=== PATIENT | male | born 1950 | race Two or more races ===

== ENCOUNTER 2017-02-19 11:48 | Inpatient (IN) | payer OTHER ==
[~2017-02-19] VITALS: Ht 180.3 cm; Wt 81.6 kg
--- NOTE | 2017-02-19 11:48 | NUR ---
[id number] FROM HOME FOR PROGRESSING WEAKNESS, N/V. [id number]. PLACED ON MONITOR. AWAITING MD ORDER
[2017-02-19] MEDS ORDERED: IV NS 0.9% 500 ML BAG IV ONE (12:00)
[2017-02-19 12:26] LABS: BASOPHILS # (AUTO) 0.2 /CMM (0.0-0.2); BASOPHILS % (AUTO) 2.5 % (0.0-2.0); EOSINOPHILS % (AUTO) 0.4 % (0.0-6.0); HEMATOCRIT 44 % (39-51); HEMOGLOBIN 14.6 g/dL (13.5-17.5); LYMPHOCYTES % (AUTO) 10.8 % (20.0-44.0); MEAN CORPUSCULAR HEMOGLOBIN 31 PG (26.0-33.0); MEAN CORPUSCULAR HGB CONC 33 g/dl (31.0-36.0); MEAN CORPUSCULAR VOLUME 94 fL (80-96); MONOCYTES # (AUTO) 0.5 /CMM (0.1-1.30); NEUTROPHILS # (AUTO) 7.9 /CMM (1.8-8.9); NEUTROPHILS % (AUTO) 81.3 % (43.0-81.0); PLATELET COUNT (AUTO) 255 /CMM (150-450); RED BLOOD CELL COUNT(AUTO) 4.71 MIL/uL (4.5-6.0); WHITE BLOOD COUNT (AUTO) 9.6 K/uL (4.3-11.0)
[2017-02-19 12:35] LABS: CALCIUM, SERUM 9.4 mg/dL (8.5-10.1); CARBON DIOXIDE 26 mmol/L (21-32); CHLORIDE 107 mmol/L (98-107); CREATININE 1.3 mg/dL (0.6-1.3); GLUCOSE 217 mg/dL (74-106); POTASSIUM 3.7 mmol/L (3.5-5.1); SODIUM SERUM 144 mmol/L (136-145); UREA NITROGEN, BLOOD 16 mg/dL (7-18)
[2017-02-19 12:41] LABS: ALANINE AMINOTRANSFERASE 30 U/L (12-78); ALKALINE PHOSPHATASE 106 U/L (46-116); ASPARTATE AMINOTRANSFERASE 15 U/L (15-37); BILIRUBIN,DIRECT 0.3 mg/dL (0.0-0.2); BILIRUBIN,TOTAL 1.6 mg/dL (0.2-1.0); TOTAL PROTEIN, SERUM 7.6 g/dL (6.4-8.2)
[2017-02-19 12:43] LABS: TROPONIN I < 0.017 ng/mL (0.00-0.056)
[2017-02-19 12:57] LABS: INR 1.05 (0.87-1.13); PROTHROMBIN TIME 10.9 SECS (9.5-12.7)
--- NOTE | 2017-02-19 13:09 | NUR ---
CALLED [facility] DENTAL SPECIALIST WAS PAGED.
[2017-02-19] MEDS ORDERED: LEVE100023 PO (13:10)
[2017-02-19] MEDS ORDERED: INSU3INS6 SQ (13:10)
[2017-02-19] MEDS ORDERED: AMLO10TA2 PO (13:10)
[2017-02-19] MEDS ORDERED: METO100T3 PO (13:10)
[2017-02-19] MEDS ORDERED: CEFTRIAXONE 1GM BAG (ER ONLY) 50 ML IV ONE (13:20)
[2017-02-19] MEDS ORDERED: CEFTRIAXONE 1GM BAG (ER ONLY) 1 GM/50 ML PIGGYBACK IV ONE (13:30)
[2017-02-19] MEDS ORDERED: IV NS 0.9% 1,000 ML BAG IV ONE ×2 (14:00→15:30)
[2017-02-19 14:35] LABS: APPEARANCE,URINE Clear (CLEAR); BILIRUBIN,URINE Negative (NEGATIVE); BLOOD, URINE Negative Ery/uL (NEGATIVE); COLOR,URINE Yellow (YELLOW); KETONES,URINE 40 (NEGATIVE); LEUKOCYTE ESTERASE ,URINE Negative (NEGATIVE); NITRITE, URINE Negative (NEGATIVE); PROTEIN,URINE 100 mg/dl (NEGATIVE); UGLUCOSE 500 MG/DL mg/dL (NEGATIVE); UROBILINOGEN,URINE 0.2 EU/dL (0.2)
[2017-02-19] MEDS ORDERED: LABETALOL HCL IV 100MG VIAL ONE (14:41)
[2017-02-19 14:43] LABS: RBC,URINE 0-2 /HPF (0-2)
--- NOTE | 2017-02-19 14:43 | NUR ---
VERBAL ORDER DR COLLADO LABETALOL 20 MG IV FOR HBP AND TACHYCARDIA
[2017-02-19 14:44] LABS: BACTERIA,URINE Few /HPF (None Seen); SQUAMOUS EPITHELIAL CELL,UR Few /HPF (None Seen)
--- NOTE | 2017-02-19 14:55 | NUR ---
GAVE REPORT TO [employer] ROOM 314 TRANSFER VIA ACLS PROTOCOL
--- NOTE | 2017-02-19 15:15 | NUR ---
RN OPENING NOTES. RECEIVED PT A&0X2 WITH FAMILY AT BEDSIDE. PT TOLERATING ROOM AIR WITH NO SOB. NSX2 RUNNING FOR SEPTIC WORK UP FLUID CHALLENGE. PT REPORTING MINOR LOWER ABDO PAIN. PT WITH IVC AT L WRIST G#18 INTACT AND OPERATIONAL. PT AND FAMILY BRIEFED ON POC. WILL CONTINUE TO MONITOR. PT WITHOUT CONCERN OR COMPLAINT AT THIS TIME AND OBVIOUS S/S OF DISTRESS OR DISCOMFORT.
[2017-02-19] MEDS ORDERED: MORPHINE SULFATE INJ 2 MG/ML DISP.SYRIN IV PRN (15:30)
[2017-02-19] MEDS ORDERED: DEXTROSE 50%-WATER 50 ML DISP.SYRIN IV PRN (15:30)
[2017-02-19] MEDS ORDERED: ACETAMINOPHEN 325 MG TABLET PO PRN (15:30)
[2017-02-19] MEDS ORDERED: ONDANSETRON HCL/PF 4 MG/2 ML VIAL IVP PRN (15:30)
--- NOTE | 2017-02-19 15:30 | NUR ---
RN NOTES. MD MADE AWARE OF CRITICAL LAB VALUE. MD REQUESTING IVF CONTINUE PRESCRIBED.
[2017-02-19 16:00] VITALS: BP 164/91
--- NOTE | 2017-02-19 16:42 | NUR ---
MS RN NOTES. FLUID CHALLENGE COMPLETE AT 1640. WILL DOC WITHIN 1 HOUR PER PROTOCOL. IVF NS 2400ML ORDERED- COMMENCED AT 1641
[2017-02-19] MEDS: LEVOFLOXACIN 750 MG /D5W 150ML 150 ML IV SCH (17:18)
[2017-02-19] MEDS: BLOOD SUGAR DIAGNOSTIC 1 EACH STRIP VI SCH ×2 (17:33→22:22)
[2017-02-19 17:54] LABS: ABG BASE EXCESS -2.9 mmol/L; ABG PCO2 34.4 mmHg (35.0-45.0); ABG PH 7.404 (7.350-7.450); ABG PO2 76.8 mmHg (75.0-100.0); AaDO2 31.7 mmHg; COHb 0.7 % (0.5-1.5); MetHb 0.4 % (0.0-1.5); SITE, ABG Left Radial; VENT MODE, BG room air
--- NOTE | 2017-02-19 18:00 | NUR ---
RN NOTES. PT REPORTING LOWER ABDO PAIN, ABDO DISTENDED, FIRM AND TENDER. BLADDER SCAN COMPLETED INDICATING URINARY RETENTION. DELGADO INSERTED AND 100ML DRAINED. PT REPORTING NO PAIN OR DISCOMFORT.
[2017-02-19] MEDS: INSULIN REGULAR, HUMAN 100 UNIT/ML 3 ML VIAL SQ PRN (18:09)
--- NOTE | 2017-02-19 19:20 | NUR ---
RN OPEN NOTES RECEIVED PATIENT RESTING IN BED, EASILY AROUSABLE. A/O X2. NO SIGN OF DISTRESS OR DISCOMFORT. BREATHING EVEN AND UNLABORED. IV ACCESS IN L WRIST, PATENT AND INTACT, NO SIGNS OF REDNESS OR INFILTRATION. HAS F/C INTACT, WITH CLEAR LIANA FLUID DRAINING. BED IN LOW LOCKED POSITION WITH SIDE RAILS X3. CALL LIGHT WITHIN REACH. WILL CONTINUE TO MONITOR.
[2017-02-19 20:00] VITALS: BP 156/89
--- NOTE | 2017-02-19 20:14 | NUR ---
MS RN CLOSING NOTES PT A&0X2 RESTING IN BED. PT TOLERATING ROOM AIR WITH NO SOB. PT REPORTING NO PAIN. PT WITH IVC AT L WRIST G18 SALINE LOCKED. PT DELGADO INTACT AND OPERATIONAL. ALL DAY NURSE DUTIES ATTENDED TO. WILL ENDORSE TO NIGHT NURSE.
--- NOTE | 2017-02-19 20:17 | NUR ---
FAMILY DETAILS MOJGAN (SISTER)- [phone]. SASCHA (SISTER) - [phone]
[2017-02-19] MEDS: LEVETIRACETAM (250 MG) 250 MG TABLET PO SCH (22:06)
[2017-02-19] MEDS: *INSULIN REGULAR(HUMULIN R)HUM 100 UNIT/ML VIAL SQ PRN (22:08)
[2017-02-19] MEDS: INSULIN DETEMIR 100 UNIT/ML CARTRIDGE SQ SCH (22:09)
[2017-02-20] VITALS (7 sets, daily range): BP systolic 127–147; BP diastolic 68–88
[2017-02-20] MEDS: BLOOD SUGAR DIAGNOSTIC 1 EACH STRIP VI SCH ×4 (06:22→21:55)
--- NOTE | 2017-02-20 06:40 | NUR ---
RN CLOSING NOTES PATIENT RESTING IN BED, EASILY AROUSABLE. A/O X2. NO SIGN OF DISTRESS OR DISCOMFORT. BREATHING EVEN AND UNLABORED. IV ACCESS IN L WRIST, PATENT AND INTACT, NO SIGNS OF REDNESS OR INFILTRATION. HAS F/C INTACT, WITH CLEAR LIANA FLUID DRAINING. NO SIGNIFICANT CHANGES THROUGH THE NIGHT. ALL NEEDS MET. BED IN LOW LOCKED POSITION WITH SIDE RAILS X3. CALL LIGHT WITHIN REACH. WILL ENDORSE TO AM SHIFT FOR COOKIE.
[2017-02-20 07:20] LABS: BASOPHILS % (AUTO) 0.2 % (0.0-2.0); EOSINOPHILS % (AUTO) 0.4 % (0.0-6.0); HEMATOCRIT 41 % (39-51); HEMOGLOBIN 13.7 g/dL (13.5-17.5); LYMPHOCYTES # (AUTO) 1.5 /CMM (0.8-4.8); LYMPHOCYTES % (AUTO) 11.9 % (20.0-44.0); MEAN CORPUSCULAR HEMOGLOBIN 32 PG (26.0-33.0); MEAN CORPUSCULAR HGB CONC 34 g/dl (31.0-36.0); MEAN CORPUSCULAR VOLUME 94 fL (80-96); MONOCYTES # (AUTO) 1.5 /CMM (0.1-1.30); MONOCYTES % (AUTO) 12.1 % (2.0-12.0); NEUTROPHILS # (AUTO) 9.6 /CMM (1.8-8.9); NEUTROPHILS % (AUTO) 75.4 % (43.0-81.0); PLATELET COUNT (AUTO) 245 /CMM (150-450); RDW COEFFICIENT OF VARIATION 13.9 (11.5-15.0); RED BLOOD CELL COUNT(AUTO) 4.34 MIL/uL (4.5-6.0); WHITE BLOOD COUNT (AUTO) 12.8 K/uL (4.3-11.0)
--- NOTE | 2017-02-20 07:25 | NUR ---
RN NOTES PT ASLEEP COMFORTABLE IN BED, EASILY AROUSABLE DURING CARE ALERT AND ORIENTED X2, ABLE TO MAKE NEEDS KNOWN, NOTED WITH FORGETFULNESS. RESPIRATIONS EVEN AND UNLABORED, DENIES ANY PAIN OR DISCOMFORT. IV ACCESS PATENT AND INTACT NO REDNESS OR INFILTRATION. SAFETY MEASURES IN PLACE, SEIZURE PRECAUTIONS IN PLACE, REORIENTED NEEDED, KEPT CLEAN DRY AND COMFORTABLE CALL LIGHT WITHIN EASY REACH
[2017-02-20 07:42] LABS: ALBUMIN 3.4 g/dL (3.4-5.0); BILIRUBIN,TOTAL 1.2 mg/dL (0.2-1.0); CALCIUM, SERUM 8.9 mg/dL (8.5-10.1); CREATININE 1.1 mg/dL (0.6-1.3); POTASSIUM 3.7 mmol/L (3.5-5.1); TOTAL PROTEIN, SERUM 6.7 g/dL (6.4-8.2)
[2017-02-20] MEDS: PANTOPRAZOLE 40 MG VIAL IV SCH (08:30)
[2017-02-20] MEDS: LEVETIRACETAM (250 MG) 250 MG TABLET PO SCH ×2 (08:31→21:55)
[2017-02-20] MEDS: AMLODIPINE BESYLATE 10 MG TABLET PO SCH (08:31)
[2017-02-20] MEDS: METOPROLOL SUCCINATE 50 MG TAB.SR.24H PO SCH (08:31)
[2017-02-20 08:33] LABS: INR 1.06 (0.87-1.13)
[2017-02-20] MEDS: INSULIN REGULAR, HUMAN 100 UNIT/ML 3 ML VIAL SQ PRN ×2 (12:28→16:39)
[2017-02-20] MEDS: LEVOFLOXACIN 750 MG /D5W 150ML 150 ML IV SCH (16:39)
[2017-02-20] MEDS: TAMSULOSIN 0.4 MG CAP.SR.24H PO SCH (21:55)
[2017-02-20] MEDS: INSULIN DETEMIR 100 UNIT/ML CARTRIDGE SQ SCH (21:56)
--- NOTE | 2017-02-20 23:16 | NUR ---
RN OPEN NOTES RECEIVED PATIENT RESTING IN BED, EASILY AROUSABLE. A/O X2. NO SIGN OF DISTRESS OR DISCOMFORT. BREATHING EVEN AND UNLABORED. IV ACCESS IN L WRIST, PATENT AND INTACT, NO SIGNS OF REDNESS OR INFILTRATION. BED IN LOW LOCKED POSITION WITH SIDE RAILS X3. CALL LIGHT WITHIN REACH. WILL CONTINUE TO MONITOR. Addendum: 02/20/17 at 2321 by DOUGLAS WATKINS RN RECEIVED PATIENT AT 1905, WRONG TIME WAS DOCUMENTED.
[2017-02-21] MEDS: BLOOD SUGAR DIAGNOSTIC 1 EACH STRIP VI SCH ×4 (06:25→21:18)
--- NOTE | 2017-02-21 07:25 | NUR ---
RN INITIAL NOTES REPORT RECEIVED AT THE BEDSIDE. PATIENT IS SLEEPING. NO SOB OR DISTRESS NOTED AT THIS TIME. PATIENT DOES NOT APPEAR TO BE IN PAIN. NO FACIAL GRIMACE NOTED. BED IN A LOW POSITION, CALL LIGHT WITHIN PATIENT REACH. WILL CONTINUE TO MONITOR.
[2017-02-21 08:00] VITALS: BP 164/96
--- NOTE | 2017-02-21 08:07 | NUR ---
RN CLOSING NOTES PATIENT AWAKE IN BED. A/O X2. NO SIGN OF DISTRESS OR DISCOMFORT. BREATHING EVEN AND UNLABORED. IV ACCESS IN L WRIST, PATENT AND INTACT, NO SIGNS OF REDNESS OR INFILTRATION. NO SIGNIFICANT CHANGES THROUGH THE NIGHT. ALL NEEDS MET. BED IN LOW LOCKED POSITION WITH SIDE RAILS X3. CALL LIGHT WITHIN REACH. ENDORSED TO AM SHIFT FOR COOKIE.
[2017-02-21] MEDS: METOPROLOL SUCCINATE 50 MG TAB.SR.24H PO SCH (08:26)
[2017-02-21] MEDS: PANTOPRAZOLE 40 MG VIAL IV SCH (08:26)
[2017-02-21] MEDS: LEVETIRACETAM (250 MG) 250 MG TABLET PO SCH ×2 (08:26→21:18)
[2017-02-21] MEDS: AMLODIPINE BESYLATE 10 MG TABLET PO SCH (08:26)
[2017-02-21 09:45] VITALS: BP 145/81
--- NOTE | 2017-02-21 09:45 | NUR ---
RECHECKED PT BP AFTER BP MEDS GIVEN AN HOUR AGO. BP NOW WITHIN NORMAL LIMITS.
[2017-02-21] MEDS: INSULIN REGULAR, HUMAN 100 UNIT/ML 3 ML VIAL SQ PRN ×2 (12:24→17:42)
--- NOTE | 2017-02-21 13:00 | NUR ---
PT IV IS INFILTRATED. REMOVED IV AND APPLIED PRESSURE, NO BLEEDING NOTED AT THE SITE. WILL PLACE NEW IV FOR ABX ADMIN.
[2017-02-21] MEDS: LEVOFLOXACIN 750 MG /D5W 150ML 150 ML IV SCH (15:41)
[2017-02-21 15:57] VITALS: BP 124/85
--- NOTE | 2017-02-21 19:16 | NUR ---
NO SIGNIFICANT CHANGES IN PATIENT CONDITION THROUGHOUT THE SHIFT. NO SOB OR DISTRESS NOTED AT THIS TIME. PATIENT DENIES SIGNIFICANT PAIN. BED IN A LOW POSITION. CALL LIGHT WITHIN PATIENT REACH, FAMILY AT THE BEDSIDE. ENDORSED TO PALLAVI JAIME, FOR COOKIE.
--- NOTE | 2017-02-21 19:40 | NUR ---
RN OPENING NOTES PT AWAKE AND RESTING IN BED. SISTER AT BEDSIDE. NO COMPLAINTS OF PAIN, DISTRESS OR SOB AT THIS TIME. PT HAS A RIGHT FA #22 IV, HL. SAFETY PRECAUTIONS IN PLACE, BED IN LOW, LOCKED POSITION 2XSIDERAILS UP AND CALL LIGHT WITHIN REACH. WILL CONTINUE TO MONITOR FOR ANY CHANGES.
[2017-02-21 20:00] VITALS: BP 147/95
[2017-02-21] MEDS: TAMSULOSIN 0.4 MG CAP.SR.24H PO SCH ×2 (21:18→22:00)
[2017-02-21] MEDS: *INSULIN REGULAR(HUMULIN R)HUM 100 UNIT/ML VIAL SQ PRN (21:21)
[2017-02-21] MEDS: INSULIN DETEMIR 100 UNIT/ML CARTRIDGE SQ SCH (21:22)
--- NOTE | 2017-02-21 22:00 | NUR ---
RN NOTES PT REFUSED FLOMAX 08.MG. EXPLAINED THE USED OF MEDICATION. PT CONTINUED TO REFUSE.
[2017-02-22] MEDS: BLOOD SUGAR DIAGNOSTIC 1 EACH STRIP VI SCH ×2 (06:21→12:41)
--- NOTE | 2017-02-22 06:56 | NUR ---
RN CLOSING NOTES PT SLEEPING IN BED. PT WAS VERY CONFUSED AND ANXIOUS AROUND 2100. AROUND 2200 PT CALMED DOWN AND SLEPT. PT SLEPT WELL THROUGHOUT THE REST OF THE NIGHT. NO COMPLAINTS OF PAIN, DISTRESS OR SOB. PT HAS A RIGHT FA #22 IV, SL. SAFETY PRECAUTIONS IN PLACE, BED IN LOW, LOCKED POSITION 3XSIDERAILS UP AND CALL LIGHT WITHIN REACH. WILL ENDORSE TO DAY SHIFT NURSE FOR CONTINUITY OF CARE.
[2017-02-22 07:18] LABS: CALCIUM, SERUM 9.2 mg/dL (8.5-10.1); POTASSIUM 3.3 mmol/L (3.5-5.1)
[2017-02-22 07:19] LABS: BASOPHILS % (AUTO) 0.4 % (0.0-2.0); EOSINOPHILS # (AUTO) 0.1 /CMM (0.0-0.7); EOSINOPHILS % (AUTO) 0.9 % (0.0-6.0); HEMATOCRIT 44 % (39-51); HEMOGLOBIN 14.6 g/dL (13.5-17.5); LYMPHOCYTES # (AUTO) 1.3 /CMM (0.8-4.8); LYMPHOCYTES % (AUTO) 11.6 % (20.0-44.0); MEAN CORPUSCULAR HEMOGLOBIN 31 PG (26.0-33.0); MEAN CORPUSCULAR HGB CONC 33 g/dl (31.0-36.0); MEAN CORPUSCULAR VOLUME 94 fL (80-96); MONOCYTES # (AUTO) 1.1 /CMM (0.1-1.30); MONOCYTES % (AUTO) 9.5 % (2.0-12.0); NEUTROPHILS # (AUTO) 8.8 /CMM (1.8-8.9); NEUTROPHILS % (AUTO) 77.6 % (43.0-81.0); PLATELET COUNT (AUTO) 225 /CMM (150-450); RDW COEFFICIENT OF VARIATION 13.6 (11.5-15.0); RED BLOOD CELL COUNT(AUTO) 4.68 MIL/uL (4.5-6.0); WHITE BLOOD COUNT (AUTO) 11.3 K/uL (4.3-11.0)
[2017-02-22 08:00] VITALS: BP 143/79
--- NOTE | 2017-02-22 08:00 | NUR ---
MS RN OPENING NOTES PATIENT IN BED SLEEPING, ARROUSABLE. NO SOB NOTED. NO SIGN OF ACUTE DISTRESS NOTED. BREATHING REGULAR ,EVEN AND UNLABORED. VS STABLE. IV ACCESS AT RFA PATENT AND INTACT. NO REDNESS, NO S/SX OF INFILTRATION NOTED. SAFETY MEASURES IN PLACE. CALL LIGHT PLACED WITHIN REACH. WILL CONTINUE TO MONITOR ACCORDINGLY.
[2017-02-22] MEDS: PANTOPRAZOLE 40 MG VIAL IV SCH (08:48)
[2017-02-22] MEDS: AMLODIPINE BESYLATE 10 MG TABLET PO SCH (08:53)
[2017-02-22 08:55] VITALS: BP 143/79
[2017-02-22] MEDS: LEVETIRACETAM (250 MG) 250 MG TABLET PO SCH (08:55)
[2017-02-22] MEDS: METOPROLOL SUCCINATE 50 MG TAB.SR.24H PO SCH (08:55)
[2017-02-22] MEDS ORDERED: POTASSIUM CHLORIDE 20 MEQ TAB.PRT.SR PO ONE (10:00)
[2017-02-22] MEDS: INSULIN REGULAR, HUMAN 100 UNIT/ML 3 ML VIAL SQ PRN (12:44)
[2017-02-22] MEDS: LEVOFLOXACIN 750 MG /D5W 150ML 150 ML IV SCH (15:43)
--- NOTE | 2017-02-22 17:25 | NUR ---
MS REGULATORY ASSISTANT NOTES PATIENT DISCHARGED HOME WITH SISTER MOJGAN VIA AMBULANCE IN A WHEELCHAIR IN STABLE CONDITION. NO SOB NOTED. NO SIGN OF ACUTE DISTRESS NOTED. BREATHING REGULAR EVEN AND UNLABORED. DENIED ANY PAIN, NO FACIAL GRIMACING NOTED. DISCHARGED INSTRUCTIONS GIVEN TO THE PATIENT AND SISTER MOJGAN INCLUDING FOLLOW UP APPT AND PRESCRIPTION. IV ACCESS REMOVED PATIENT TOLERATED WELL. NO BLEEDING, NO REDNESS,NO SWELLING NOTED. ALL BELONGINGS ACCOUNTED FOR.
== END 2017-02-22 17:25 | disposition home or self-care (01) | DRG 871 ==
LOC: ER 11:52 → TELE 14:13 → MED 02-20 09:13
PROVIDERS: ADMIT Internal Medicine; ATTEND Internal Medicine
DX: A41.9 Sepsis, unspecified organism (principal); G93.41 Metabolic encephalopathy; E87.0 Hyperosmolality and hypernatremia; D68.59 Other primary thrombophilia; N39.0 Urinary tract infection, site not specified; E11.9 Type 2 diabetes mellitus without complications; I10 Essential (primary) hypertension; Z79.4 Long term (current) use of insulin; Z79.84 Long term (current) use of oral hypoglycemic drugs; Z98.890 Other specified postprocedural states; Z87.440 Personal history of urinary (tract) infections; Z92.21 Personal history of antineoplastic chemotherapy; Z85.841 Personal history of malignant neoplasm of brain
CPT/HCPCS: 36415; 36600; 70450-TC; 71010-TC; 80048-TC; 80053-TC; 80076-TC; 81000-TC; 82553-TC; 82962-TC; 83605-TC; 84484-TC; 85025-TC; 85610-TC; 85730-TC; 87040-TC; 87081-TC; 87086-TC; 93307-TC; 97116-TC; 97530-TC; A4606; C9113; J0696; J1815; J1956; J3490; J7030; J7040; Z7610

== ENCOUNTER 2017-07-14 21:35 | Inpatient (IN) | payer OTHER ==
[~2017-07-14] VITALS: Ht 175.3 cm; Wt 70.8 kg
[~2017-07-14 21:35] MED LIST: AMLO10TA6 PO; INSU3INS6 SQ; LEVE100023 PO; METO100T14 PO
[2017-07-14] MEDS ORDERED: ACETAMINOPHEN 650 MG/SUPP.RECT RC ONE ×2 (21:43→22:00)
[2017-07-14] MEDS ORDERED: VANCOMYCIN 1 GM in IV D5W 250 ML IV ONE (22:00)
[2017-07-14] MEDS ORDERED: IV NS 0.9% 1,000 ML BAG IV ONE (22:00)
[2017-07-14] MEDS ORDERED: CEFEPIME 1 GM in IV D5W 50 ML IV ONE (22:00)
[2017-07-14 22:18] LABS: EOSINOPHILS % (AUTO) 0.3 % (0.0-6.0); HEMATOCRIT 39 % (39-51); HEMOGLOBIN 13.2 g/dL (13.5-17.5); LYMPHOCYTES # (AUTO) 0.1 /CMM (0.8-4.8); LYMPHOCYTES % (AUTO) 0.9 % (20.0-44.0); MEAN CORPUSCULAR HGB CONC 34 g/dl (31.0-36.0); MEAN CORPUSCULAR VOLUME 89 fL (80-96); MONOCYTES # (AUTO) 0.2 /CMM (0.1-1.30); MONOCYTES % (AUTO) 1.4 % (2.0-12.0); NEUTROPHILS # (AUTO) 14.2 /CMM (1.8-8.9); NEUTROPHILS % (AUTO) 97.4 % (43.0-81.0); PLATELET COUNT (AUTO) 194 /CMM (150-450); RDW COEFFICIENT OF VARIATION 13.3 (11.5-15.0); RED BLOOD CELL COUNT(AUTO) 4.35 MIL/uL (4.5-6.0); WHITE BLOOD COUNT (AUTO) 14.6 K/uL (4.3-11.0)
[2017-07-14 22:25] LABS: CALCIUM, SERUM 8.9 mg/dL (8.5-10.1); CARBON DIOXIDE 32 mmol/L (21-32); CHLORIDE 107 mmol/L (98-107); CREATININE 1.3 mg/dL (0.6-1.3); GLUCOSE 149 mg/dL (74-106); SODIUM SERUM 144 mmol/L (136-145); UREA NITROGEN, BLOOD 17 mg/dL (7-18)
[2017-07-14 22:29] LABS: POTASSIUM 2.8 mmol/L (3.5-5.1)
[2017-07-14 22:30] LABS: ALANINE AMINOTRANSFERASE 37 U/L (12-78); ALBUMIN 3.4 g/dL (3.4-5.0); ALKALINE PHOSPHATASE 94 U/L (46-116); ASPARTATE AMINOTRANSFERASE 22 U/L (15-37); BILIRUBIN,DIRECT 0.4 mg/dL (0.0-0.2); BILIRUBIN,TOTAL 1.9 mg/dL (0.2-1.0); TOTAL PROTEIN, SERUM 6.7 g/dL (6.4-8.2)
[2017-07-14 22:31] LABS: TROPONIN I < 0.017 ng/mL (0.00-0.056)
[2017-07-14 22:35] LABS: INR 1.04 (0.87-1.13)
[2017-07-14] MEDS ORDERED: CEFEPIME 1 GM VIAL ONE (22:39)
[2017-07-14] MEDS ORDERED: VANCOMYCIN 1 GM VIAL ONE (22:40)
[2017-07-14 22:48] LABS: APPEARANCE,URINE SL CLOUDY (CLEAR); BILIRUBIN,URINE NEGATIVE (NEGATIVE); BLOOD, URINE 2+ Ery/uL (NEGATIVE); COLOR,URINE YELLOW (YELLOW); KETONES,URINE NEGATIVE (NEGATIVE); LEUKOCYTE ESTERASE ,URINE NEGATIVE (NEGATIVE); NITRITE, URINE NEGATIVE (NEGATIVE); PROTEIN,URINE NEGATIVE (NEGATIVE); UGLUCOSE NEGATIVE (NEGATIVE); UROBILINOGEN,URINE 0.2 EU/dL (0.2)
[2017-07-14 22:51] LABS: RBC,URINE 51-80 /HPF (0-2); WBC,URINE 0-2 /HPF (0-3)
[2017-07-14 22:52] LABS: BACTERIA,URINE Rare /HPF (None Seen); SQUAMOUS EPITHELIAL CELL,UR Few /HPF (None Seen)
[2017-07-14] MEDS ORDERED: POTASSIUM CHLORIDE 10 MEQ/50 ML PREMIXED IVPB FOR PERIPHERAL LINE IV ONE (23:30)
[2017-07-14] MEDS ORDERED: POTASSIUM CL. PREMIX PERIPHER. 50 ML ONE (23:36)
[2017-07-15] MEDS ORDERED: LEVETIRACETAM (500MG) 1,000 MG in IV NS 0.9% 100 ML IV SCH ×2
[2017-07-15] MEDS ORDERED: LEVETIRACETAM (500MG) 500 MG/5 ML VIAL IV ONE (00:03)
[2017-07-15] MEDS ORDERED: POTASSIUM CL. PREMIX PERIPHER. 50 ML ONE (00:46)
[2017-07-15] MEDS ORDERED: LIDOCAINE /MPF 1% VIAL 5 ML VIAL ONE (00:50)
[2017-07-15] MEDS ORDERED: HYDROCODONE/APAP 5/325MG 1 EACH TABLET PO PRN (01:00)
[2017-07-15] MEDS ORDERED: MAGNESIUM HYDROXIDE 30 ML UDC PO PRN (01:00)
[2017-07-15] MEDS ORDERED: DEXTROSE 50%-WATER 50 ML DISP.SYRIN IV PRN (01:00)
[2017-07-15] MEDS ORDERED: ONDANSETRON HCL/PF 4 MG/2 ML VIAL IVP PRN (01:00)
[2017-07-15] MEDS: ACYCLOVIR IV SCH ×5 (01:00→21:58)
[2017-07-15] MEDS: AMPICILLIN 2 GM in IV NS 0.9% 50 ML IV SCH ×7 (01:00→20:07)
[2017-07-15] MEDS ORDERED: MAG HYDROX/AL HYDROX/SIMETH 30 ML UDC PO PRN (01:00)
[2017-07-15] MEDS ORDERED: ACETAMINOPHEN 325 MG TABLET PO PRN (01:00)
[2017-07-15] MEDS ORDERED: Z GUARD REMEDY 2 OZ OINT TP PRN (01:00)
[2017-07-15] MEDS: D5W IV SCH ×5 (01:00→21:58)
[2017-07-15] MEDS ORDERED: CEFEPIME 1 GM in IV D5W 50 ML IV STA (01:14)
[2017-07-15 01:34] LABS: CSF GLUCOSE 85 mg/dL (40-70); CSF PROTEIN 69.2 mg/dL (15-45)
[2017-07-15] MEDS ORDERED: CEFEPIME 1 GM VIAL ONE (01:41)
[2017-07-15 02:16] VITALS: BP 154/88
[2017-07-15] MEDS ORDERED: CEFTRIAXONE 1 G VIAL ONE (02:19)
[2017-07-15] MEDS: CEFTRIAXONE 2 G in IV NS 0.9% 100 ML IV SCH ×3 (02:33→23:00)
[2017-07-15] MEDS ORDERED: AMPICILLIN 1 GM VIAL ONE ×2 (03:24→04:44)
[2017-07-15] MEDS ORDERED: ACYCLOVIR IV 500 MG VIAL IV ONE (03:26)
[2017-07-15 04:00] VITALS: BP 164/89
[2017-07-15] MEDS: IV NS 0.9% 1,000 ML IV PRN (05:37)
[2017-07-15] MEDS: BLOOD SUGAR DIAGNOSTIC 1 EACH STRIP IN SCH ×4 (06:10→22:48)
[2017-07-15 07:35] LABS: HEMATOCRIT 36 % (39-51); HEMOGLOBIN 12.2 g/dL (13.5-17.5); LYMPHOCYTES # (AUTO) 0.6 /CMM (0.8-4.8); LYMPHOCYTES % (AUTO) 2.1 % (20.0-44.0); MEAN CORPUSCULAR HGB CONC 34 g/dl (31.0-36.0); MEAN CORPUSCULAR VOLUME 90 fL (80-96); MONOCYTES # (AUTO) 1.9 /CMM (0.1-1.30); MONOCYTES % (AUTO) 6.6 % (2.0-12.0); NEUTROPHILS # (AUTO) 26.6 /CMM (1.8-8.9); NEUTROPHILS % (AUTO) 91.3 % (43.0-81.0); PLATELET COUNT (AUTO) 185 /CMM (150-450); RDW COEFFICIENT OF VARIATION 13.6 (11.5-15.0); RED BLOOD CELL COUNT(AUTO) 3.98 MIL/uL (4.5-6.0); WHITE BLOOD COUNT (AUTO) 29.1 K/uL (4.3-11.0)
[2017-07-15 07:40] LABS: CALCIUM, SERUM 8.4 mg/dL (8.5-10.1); CREATININE 1.4 mg/dL (0.6-1.3); MAGNESIUM 1.9 mg/dL (1.8-2.4); PHOSPHORUS 2.4 mg/dL (2.5-4.9); POTASSIUM 3.8 mmol/L (3.5-5.1)
[2017-07-15 08:00] VITALS: BP 127/80
[2017-07-15 08:17] LABS: THYROID STIMULATING HORMONE 0.534 uIU/mL (0.358-3.74)
[2017-07-15] MEDS ORDERED: FEE PK DOSING 1 MIN EA MC ONE (08:26)
[2017-07-15 08:47] LABS: BAND % (MANUAL) 21 % (0.0-5.0); LYMPHOCYTES % (MANUAL) 3 % (16-48); MONOCYTES % (MANUAL) 6 % (0-11.0); NEUTROPHILS % (MANUAL) 70 (42-76)
[2017-07-15] MEDS ORDERED: AMLODIPINE BESYLATE 10 MG TABLET PO SCH ×2 (09:00→20:30)
[2017-07-15] MEDS: METOPROLOL SUCCINATE 50 MG TAB.SR.24H PO SCH (09:00)
[2017-07-15] MEDS ORDERED: POTASSIUM CHLORIDE 20 MEQ TAB.PRT.SR PO SCH (11:00)
[2017-07-15] MEDS ORDERED: Sodium Phosphate 15 MMOL in IV D5W 250 ML IV ONE (11:00)
[2017-07-15 11:05] LABS: IRON, SERUM 17 ug/dl (50-175); TOTAL IRON BINDING CAPACITY 104 ug/dl (250-450)
[2017-07-15 11:08] LABS: TROPONIN I < 0.017 ng/mL (0.00-0.056)
[2017-07-15 11:12] LABS: MAGNESIUM 1.9 mg/dL (1.8-2.4)
[2017-07-15 11:17] LABS: CHOLESTEROL 89 mg/dL (<200); FERRITIN 277 ng/mL (8-388); HDL CHOLESTEROL 39 mg/dL (40-60); LDL 46 mg/dL (0-99); THYROID STIMULATING HORMONE 0.541 uIU/mL (0.358-3.74); TRIGLYCERIDES 35 mg/dL (30-150)
[2017-07-15] MEDS: VANCOMYCIN 0.75 GM in IV D5W 250 ML IV SCH ×2 (12:48→22:07)
[2017-07-15] MEDS: POTASSIUM CL. PREMIX PERIPHER. 50 ML IV SCH ×6 (14:37→20:54)
[2017-07-15 16:00] VITALS: BP 120/71
[2017-07-15 20:00] VITALS: BP 162/92
[2017-07-15] MEDS: LEVETIRACETAM (250 MG) 250 MG TABLET PO SCH (20:27)
[2017-07-15 21:00] VITALS: BP 146/79
[2017-07-16] MEDS: AMPICILLIN 2 GM in IV NS 0.9% 50 ML IV SCH ×6 (01:10→20:16)
[2017-07-16] MEDS: IV NS 0.9% 1,000 ML IV PRN (04:17)
[2017-07-16] MEDS: ACYCLOVIR IV SCH ×3 (05:07→22:03)
[2017-07-16] MEDS: D5W IV SCH ×3 (05:07→22:03)
[2017-07-16 07:35] LABS: CALCIUM, SERUM 8.7 mg/dL (8.5-10.1); CREATININE 1.1 mg/dL (0.6-1.3); PHOSPHORUS 2.3 mg/dL (2.5-4.9); POTASSIUM 3.8 mmol/L (3.5-5.1)
[2017-07-16 08:00] VITALS: BP 157/93
[2017-07-16] MEDS: BLOOD SUGAR DIAGNOSTIC 1 EACH STRIP IN SCH ×4 (08:12→22:33)
[2017-07-16] MEDS: CEFTRIAXONE 2 G in IV NS 0.9% 100 ML IV SCH ×2 (08:13→20:16)
[2017-07-16] MEDS: METOPROLOL SUCCINATE 50 MG TAB.SR.24H PO SCH (08:14)
[2017-07-16] MEDS: LEVETIRACETAM (250 MG) 250 MG TABLET PO SCH ×2 (08:16→20:45)
[2017-07-16 10:20] LABS: BASOPHILS % (AUTO) 0.1 % (0.0-2.0); EOSINOPHILS % (AUTO) 1.3 % (0.0-6.0); HEMATOCRIT 39 % (39-51); LYMPHOCYTES # (AUTO) 0.8 /CMM (0.8-4.8); LYMPHOCYTES % (AUTO) 5.1 % (20.0-44.0); MEAN CORPUSCULAR HGB CONC 34 g/dl (31.0-36.0); MEAN CORPUSCULAR VOLUME 91 fL (80-96); MONOCYTES % (AUTO) 6.7 % (2.0-12.0); NEUTROPHILS # (AUTO) 12.9 /CMM (1.8-8.9); NEUTROPHILS % (AUTO) 86.8 % (43.0-81.0); PLATELET COUNT (AUTO) 172 /CMM (150-450); RDW COEFFICIENT OF VARIATION 13.8 (11.5-15.0); RED BLOOD CELL COUNT(AUTO) 4.26 MIL/uL (4.5-6.0); WHITE BLOOD COUNT (AUTO) 14.8 K/uL (4.3-11.0)
[2017-07-16] MEDS: VANCOMYCIN 0.75 GM in IV D5W 250 ML IV SCH (11:15)
[2017-07-16] MEDS ORDERED: Sodium Phosphate 7.5 MMOL in IV D5W 100 ML IV ONE (12:00)
[2017-07-16] MEDS: INSULIN REGULAR, HUMAN 100 UNIT/ML 3 ML VIAL SQ PRN ×3 (12:31→22:31)
[2017-07-16 16:00] VITALS: BP 139/88
[2017-07-16 18:59] VITALS: BP 139/88
[2017-07-16 20:00] VITALS: BP 147/79
[2017-07-16] MEDS: VANCOMYCIN 1 GM in IV D5W 250 ML IV SCH (22:03)
[2017-07-17] MEDS: AMPICILLIN 2 GM in IV NS 0.9% 50 ML IV SCH ×6 (01:08→21:13)
[2017-07-17] MEDS: ACYCLOVIR IV SCH (05:35)
[2017-07-17] MEDS: D5W IV SCH (05:35)
[2017-07-17] MEDS: IV NS 0.9% 1,000 ML IV PRN (05:37)
[2017-07-17] MEDS: BLOOD SUGAR DIAGNOSTIC 1 EACH STRIP IN SCH ×4 (06:10→21:37)
[2017-07-17 08:00] VITALS: BP 145/70
[2017-07-17] MEDS: CEFTRIAXONE 2 G in IV NS 0.9% 100 ML IV SCH ×2 (08:03→20:14)
[2017-07-17 08:51] VITALS: BP 152/99
[2017-07-17] MEDS: METOPROLOL SUCCINATE 50 MG TAB.SR.24H PO SCH (08:51)
[2017-07-17] MEDS: LEVETIRACETAM (250 MG) 250 MG TABLET PO SCH ×2 (08:51→21:15)
[2017-07-17] MEDS: VANCOMYCIN 1 GM in IV D5W 250 ML IV SCH ×2 (09:45→21:40)
[2017-07-17 10:18] LABS: *BACT BETA STREP (GROUP B) AG Negative (Negative); *BACT NEISSERIA MENING. AG Negative (Negative); *BACT STREP PNEUMONIAE AG Negative (Negative)
[2017-07-17 10:32] LABS: BASOPHILS % (AUTO) 0.1 % (0.0-2.0); EOSINOPHILS % (AUTO) 3.1 % (0.0-6.0); HEMATOCRIT 37 % (39-51); HEMOGLOBIN 12.6 g/dL (13.5-17.5); LYMPHOCYTES # (AUTO) 0.8 /CMM (0.8-4.8); LYMPHOCYTES % (AUTO) 7.4 % (20.0-44.0); MEAN CORPUSCULAR HGB CONC 34 g/dl (31.0-36.0); MEAN CORPUSCULAR VOLUME 90 fL (80-96); MONOCYTES # (AUTO) 0.9 /CMM (0.1-1.30); MONOCYTES % (AUTO) 8.7 % (2.0-12.0); NEUTROPHILS # (AUTO) 8.7 /CMM (1.8-8.9); NEUTROPHILS % (AUTO) 80.7 % (43.0-81.0); PLATELET COUNT (AUTO) 181 /CMM (150-450); RDW COEFFICIENT OF VARIATION 13.7 (11.5-15.0); RED BLOOD CELL COUNT(AUTO) 4.15 MIL/uL (4.5-6.0); WHITE BLOOD COUNT (AUTO) 10.8 K/uL (4.3-11.0)
[2017-07-17 10:46] LABS: CALCIUM, SERUM 8.3 mg/dL (8.5-10.1); PHOSPHORUS 2.2 mg/dL (2.5-4.9); POTASSIUM 3.3 mmol/L (3.5-5.1)
[2017-07-17] MEDS ORDERED: POTASSIUM CHLORIDE 20 MEQ POWDER PACKET PO SCH (11:30)
[2017-07-17] MEDS ORDERED: NEUTRA PHOS 1 POWD.PACKET PO ONE (11:30)
[2017-07-17] MEDS: INSULIN REGULAR, HUMAN 100 UNIT/ML 3 ML VIAL SQ PRN ×2 (11:57→21:38)
[2017-07-17 16:00] VITALS: BP 140/87
[2017-07-17 16:32] VITALS: BP 140/87
[2017-07-17 18:09] LABS: *HSV 1 DNA PCR Negative (Negative); *HSV 2 DNA PCR Negative (Negative)
[2017-07-17 20:00] VITALS: BP 169/101
[2017-07-18 00:15] VITALS: BP 149/87
[2017-07-18] MEDS: AMPICILLIN 2 GM in IV NS 0.9% 50 ML IV SCH ×5 (01:06→16:48)
[2017-07-18 08:00] VITALS: BP 161/98
[2017-07-18 08:12] LABS: BASOPHILS % (AUTO) 0.2 % (0.0-2.0); EOSINOPHILS % (AUTO) 4.6 % (0.0-6.0); HEMATOCRIT 39 % (39-51); HEMOGLOBIN 13.3 g/dL (13.5-17.5); LYMPHOCYTES # (AUTO) 1.3 /CMM (0.8-4.8); LYMPHOCYTES % (AUTO) 12.3 % (20.0-44.0); MEAN CORPUSCULAR HGB CONC 34 g/dl (31.0-36.0); MEAN CORPUSCULAR VOLUME 90 fL (80-96); MONOCYTES % (AUTO) 10.2 % (2.0-12.0); NEUTROPHILS # (AUTO) 7.5 /CMM (1.8-8.9); NEUTROPHILS % (AUTO) 72.7 % (43.0-81.0); PLATELET COUNT (AUTO) 203 /CMM (150-450); RDW COEFFICIENT OF VARIATION 13.8 (11.5-15.0); RED BLOOD CELL COUNT(AUTO) 4.36 MIL/uL (4.5-6.0); WHITE BLOOD COUNT (AUTO) 10.3 K/uL (4.3-11.0)
[2017-07-18 08:23] LABS: CALCIUM, SERUM 8.7 mg/dL (8.5-10.1); CREATININE 0.9 mg/dL (0.6-1.3); PHOSPHORUS 3.3 mg/dL (2.5-4.9); POTASSIUM 3.1 mmol/L (3.5-5.1)
[2017-07-18] MEDS: BLOOD SUGAR DIAGNOSTIC 1 EACH STRIP IN SCH ×3 (08:30→16:48)
[2017-07-18] MEDS: CEFTRIAXONE 2 G in IV NS 0.9% 100 ML IV SCH (08:42)
[2017-07-18] MEDS: LEVETIRACETAM (250 MG) 250 MG TABLET PO SCH (10:06)
[2017-07-18] MEDS: VANCOMYCIN 1 GM in IV D5W 250 ML IV SCH (10:07)
[2017-07-18] MEDS: METOPROLOL SUCCINATE 50 MG TAB.SR.24H PO SCH (10:12)
[2017-07-18] MEDS: POTASSIUM CL. PREMIX PERIPHER. 50 ML IV SCH ×2 (10:26→14:33)
[2017-07-18] MEDS ORDERED: AMPI500C11 PO (11:47)
[2017-07-18] MEDS: INSULIN REGULAR, HUMAN 100 UNIT/ML 3 ML VIAL SQ PRN (12:24)
[2017-07-18 16:00] VITALS: BP 109/73
[2017-07-18 17:16] VITALS: BP 132/75
== END 2017-07-18 17:30 | DRG 871 ==
LOC: ER 21:39 → TELE 07-15 00:15 → MED 07-15 10:50
PROVIDERS: ADMIT Nurse Practitioner Acute Care; ATTEND Nurse Practitioner Acute Care
DX: A41.9 Sepsis, unspecified organism (principal); N17.0 Acute kidney failure with tubular necrosis; G92 Toxic encephalopathy; E44.0 Moderate protein-calorie malnutrition; I12.9 Hypertensive chronic kidney disease with stage 1 through stage 4 chronic kidney disease, or unspecified chronic kidney disease; N18.9 Chronic kidney disease, unspecified; Z92.3 Personal history of irradiation; Z92.21 Personal history of antineoplastic chemotherapy; Z85.841 Personal history of malignant neoplasm of brain; E11.22 Type 2 diabetes mellitus with diabetic chronic kidney disease; E78.5 Hyperlipidemia, unspecified; Z79.4 Long term (current) use of insulin; Z79.899 Other long term (current) drug therapy; G40.909 Epilepsy, unspecified, not intractable, without status epilepticus; E87.6 Hypokalemia; D63.8 Anemia in other chronic diseases classified elsewhere; E83.51 Hypocalcemia
CPT/HCPCS: 36415; 70450-TC; 71045-TC; 74181-TC; 76705-TC; 78226; 80048-TC; 80061-TC; 80076-TC; 80202-TC; 81000-TC; 82306; 82728-TC; 82962-TC; 83540-TC; 83605-TC; 83735-TC; 84100-TC; 84439-TC; 84443-TC; 84484-TC; 85025-TC; 85730-TC; 87040-TC; 87070-TC; 87081-TC; 87086-TC; 87186-TC; 87802; 87899; 89051-TC; 92611-TC; 93307-TC; A4216; A4606; A6402; A9537; A9563; J0133; J0290; J0692; J0696; J1815; J1953; J3370; J3480; J3490; J7030; J7040; J7060; Z7610

== ENCOUNTER 2019-04-16 03:57 | Emergency (ER) | payer OTHER ==
[~2019-04-16] VITALS: Ht 175.3 cm; Wt 66.8 kg
[~2019-04-16 03:57] MED LIST changes: -AMLO10TA6 PO; +AMLO10TA7 PO; +AMPI500C11 PO
--- NOTE | 2019-04-16 04:10 | NUR ---
[id number] FROM HOME C/O DIARRHEA, +FEVER, +DRY COUGH X 1 DAY. PT AWAKE , NON- VERBAL, W/ GT IN PLACE. PIV 18G ON THE LFA. FLUSHING WELL. NOTED W/ SOILED DIAPER, PT WAS ASSISTED W/ DIAPER CHANGE AND A GOOD ROSA ISELA CARE. WAS PLACED ON A MONITOR, O2 SAT:89% ON R/A . O2 AT 2LPM VIA NC WAS APPLIED. WILL CONT TO MONITOR ,
[2019-04-16] MEDS ORDERED: IV NS 0.9% 1,000 ML BAG IV ONE ×2 (04:30→08:30)
[2019-04-16] MEDS ORDERED: ACETAMINOPHEN 650 MG/SUPP.RECT RC ONE (04:30)
[2019-04-16] MEDS ORDERED: ACETAMINOPHEN ES 500 MG TABLET ONE (04:33)
--- NOTE | 2019-04-16 04:40 | NUR ---
LFA 18G END TIME: [id number]
[2019-04-16 04:45] LABS: BASOPHILS # (AUTO) 0.1 /CMM (0.0-0.2); BASOPHILS % (AUTO) 0.4 % (0.0-2.0); EOSINOPHILS % (AUTO) 0.4 % (0.0-6.0); HEMATOCRIT 38 % (39-51); HEMOGLOBIN 12.4 g/dL (13.5-17.5); LYMPHOCYTES # (AUTO) 0.6 /CMM (0.8-4.8); LYMPHOCYTES % (AUTO) 2.6 % (20.0-44.0); MEAN CORPUSCULAR HGB CONC 33 g/dl (31.0-36.0); MEAN CORPUSCULAR VOLUME 92 fL (80-96); MONOCYTES # (AUTO) 0.9 /CMM (0.1-1.30); MONOCYTES % (AUTO) 3.9 % (2.0-12.0); NEUTROPHILS # (AUTO) 20.5 /CMM (1.8-8.9); NEUTROPHILS % (AUTO) 92.7 % (43.0-81.0); PLATELET COUNT (AUTO) 289 /CMM (150-450); RED BLOOD CELL COUNT(AUTO) 4.11 MIL/uL (4.5-6.0); WHITE BLOOD COUNT (AUTO) 22.2 K/uL (4.3-11.0)
[2019-04-16] MEDS ORDERED: ACETAMINOPHEN ES 500 MG TABLET GT ONE (05:00)
[2019-04-16 05:07] LABS: APPEARANCE,URINE Clear (CLEAR); BILIRUBIN,URINE Negative (NEGATIVE); BLOOD, URINE Negative Ery/uL (NEGATIVE); COLOR,URINE Yellow (YELLOW); KETONES,URINE Negative (NEGATIVE); LEUKOCYTE ESTERASE ,URINE Small (NEGATIVE); NITRITE, URINE Negative (NEGATIVE); PROTEIN,URINE Trace mg/dl (NEGATIVE); UGLUCOSE 250 MG/DL mg/dL (NEGATIVE)
[2019-04-16 05:08] LABS: CALCIUM, SERUM 9.1 mg/dL (8.5-10.1); CARBON DIOXIDE 36 mmol/L (21-32); CHLORIDE 97 mmol/L (98-107); CREATININE 1.1 mg/dL (0.6-1.3); GLUCOSE 279 mg/dL (74-106); SODIUM SERUM 138 mmol/L (136-145); UREA NITROGEN, BLOOD 35 mg/dL (7-18)
[2019-04-16] MEDS ORDERED: ONDANSETRON HCL/PF 4 MG/2 ML VIAL ONE (05:12)
[2019-04-16 05:14] LABS: ALANINE AMINOTRANSFERASE 21 U/L (12-78); ALBUMIN 2.7 g/dL (3.4-5.0); ALKALINE PHOSPHATASE 114 U/L (46-116); ASPARTATE AMINOTRANSFERASE 18 U/L (15-37); B-TYPE NATRIURETIC PEPTIDE 365 PG/ML (0-125); BILIRUBIN,DIRECT 0.2 mg/dL (0.0-0.2); BILIRUBIN,TOTAL 0.8 mg/dL (0.2-1.0); TOTAL PROTEIN, SERUM 6.6 g/dL (6.4-8.2)
[2019-04-16] MEDS ORDERED: ONDANSETRON HCL/PF 4 MG/2 ML VIAL IV ONE (05:30)
[2019-04-16 05:43] LABS: BACTERIA,URINE Few /HPF (None Seen); RBC,URINE 0-2 /HPF (0-2); SQUAMOUS EPITHELIAL CELL,UR Rare /HPF (None Seen); WBC,URINE 51-80 /HPF (0-3)
--- NOTE | 2019-04-16 05:45 | NUR ---
dr. gan on the phone w/ dalila hanson
[2019-04-16] MEDS ORDERED: VANCOMYCIN 1 GM in IV D5W 250 ML IV ONE (06:00)
[2019-04-16] MEDS ORDERED: PIPERACILLIN /TAZOBACTAM 3.375 G in IV D5W 50 ML IV ONE (06:00)
[2019-04-16] MEDS ORDERED: PIPERACILLIN /TAZOBACTAM 3.375 G VIAL IV ONE (06:03)
[2019-04-16] MEDS ORDERED: VANCOMYCIN 1 GM VIAL ONE (06:03)
--- NOTE | 2019-04-16 07:28 | NUR ---
ASSUME CARE, REPORT GIVEN BY PALLAVI LAU. DURING ROUNDS, PTS FAMILY AT BEDSIDE, MADE AWARE PLAN OF CARE. PTS EYES CLOSED, EASILY AROUSABLE. PER REPORT, SECOND LACTATE DRAWN. CONTINUE TO MONITOR.
--- NOTE | 2019-04-16 08:25 | NUR ---
Patient lethargic but arousable hard stimuli ,his lip swollen md aware family stated started lip swollen Md @ bedside Ct head order .
[2019-04-16] MEDS ORDERED: methylPREDNISolone SOD SUCC 125 MG/2ML VIAL IV ONE (08:30)
--- NOTE | 2019-04-16 08:30 | NUR ---
Patient Accepted to [facility] accepting MD is Otoniel RAGLAND [id number]
--- NOTE | 2019-04-16 08:48 | NUR ---
Called Pat From regarding change condition lethrgic but arousable will order CT head then to follow
[2019-04-16] MEDS ORDERED: methylPREDNISolone SOD SUCC 125 MG/2ML VIAL ONE (08:55)
--- NOTE | 2019-04-16 09:04 | NUR ---
Patient to Ct noted eyes open ,non verbal patient daughter stated Hx of bleed
--- NOTE | 2019-04-16 09:06 | NUR ---
Patient has GT per report able to flused with Ns cover and clean and dry
--- NOTE | 2019-04-16 09:29 | NUR ---
Patient eyes close non verbal noted suction PRN he wakes up during suctioning and grabbed hands ,patient vitals taken and recorded
--- NOTE | 2019-04-16 09:37 | NUR ---
Patient stable to [facility] per Dr. Metz
[2019-04-16 09:39] VITALS: BP 127/88
--- NOTE | 2019-04-16 09:42 | NUR ---
Called Pat. from ETA @ [address] Gibbs
--- NOTE | 2019-04-16 10:00 | NUR ---
Patiet reposition to To Rt side noted bilateral upper and lower Extremities contracted keep patient comfortable
--- NOTE | 2019-04-16 10:23 | NUR ---
Called ED EN @ [facility] [phone] report given to THERESA MICHAELS 45minutes
--- NOTE | 2019-04-16 11:08 | NUR ---
PRN 118 to cook pickled meat patient trasfer to [facility] @ [facility] to transfer per MD Moran
== END 2019-04-16 11:12 ==
LOC: ER 03:58
DX: A41.9 Sepsis, unspecified organism (principal); R56.9 Unspecified convulsions; I10 Essential (primary) hypertension; E11.9 Type 2 diabetes mellitus without complications; Z98.890 Other specified postprocedural states; Z79.4 Long term (current) use of insulin; Z79.899 Other long term (current) drug therapy
CPT/HCPCS: 36415; 70450; 71045; 80048; 80076; 81001; 83605 ×2; 83880; 84145; 84484; 85025; 85730; 87040 ×2; 87086; 87804 ×2; 93005; 96365; 96367; 96375; 99291; J2405; J2543 ×2; J2930; J3370; J7030 ×2; J7060; 81000-TC

== ENCOUNTER 2023-07-23 15:34 | Emergency (ER) | payer OTHER ==
[~2023-07-23] VITALS: Ht 172.7 cm; Wt 64.9 kg
[~2023-07-23 15:34] MED LIST changes: +AMLO-213 PO; -AMLO10TA7 PO
[2023-07-23] MEDS: IV NS 0.9% 1,000 ML BAG IV ONE (16:15)
[2023-07-23 16:38] LABS: BASOPHILS % (AUTO) 0.5 % (0.0-2.0); EOSINOPHILS % (AUTO) 0.1 % (0.0-6.0); HEMATOCRIT 32 % (39-51); HEMOGLOBIN 10.2 g/dL (13.5-17.5); LYMPHOCYTES # (AUTO) 1.1 K/uL (0.8-4.8); LYMPHOCYTES % (AUTO) 10.3 % (20.0-44.0); MEAN CORPUSCULAR HEMOGLOBIN 26 PG (26.0-33.0); MEAN CORPUSCULAR HGB CONC 32 g/dl (31.0-36.0); MEAN CORPUSCULAR VOLUME 80 fL (80-96); MONOCYTES # (AUTO) 1.2 K/uL (0.1-1.30); MONOCYTES % (AUTO) 11.6 % (2.0-12.0); NEUTROPHILS % (AUTO) 77.5 % (43.0-81.0); PLATELET COUNT (AUTO) 519 K/uL (150-450); RED BLOOD CELL COUNT(AUTO) 4.02 MIL/uL (4.5-6.0); RED CELL DISTRIBUTION WIDTH 17.7 % (11.5-15.0); WHITE BLOOD COUNT (AUTO) 10.3 K/uL (4.3-11.0)
[2023-07-23 16:51] LABS: INR 1.04 (0.91-1.10); PARTIAL THROMBOPLASTIN TIME 29.4 SEC (24.3-34.3); PROTHROMBIN TIME 10.7 SECS (9.2-11.1)
[2023-07-23 16:55] LABS: LACTIC ACID 1.4 mmol/L (0.4-2.0)
[2023-07-23 17:06] LABS: ALANINE AMINOTRANSFERASE 22 U/L (12-78); ALKALINE PHOSPHATASE 160 U/L (46-116); ASPARTATE AMINOTRANSFERASE 40 U/L (15-37); BILIRUBIN,DIRECT 0.2 mg/dL (0.0-0.2); BILIRUBIN,TOTAL 0.4 mg/dL (0.2-1.0); CALCIUM, SERUM 8.5 mg/dL (8.5-10.1); CARBON DIOXIDE 37 mmol/L (21-32); CHLORIDE 102 mmol/L (98-107); CREATININE 0.5 mg/dL (0.6-1.3); GLUCOSE 78 mg/dL (74-106); POTASSIUM 3.7 mmol/L (3.5-5.1); SODIUM SERUM 139 mmol/L (136-145); TOTAL PROTEIN, SERUM 7.6 g/dL (6.4-8.2); UREA NITROGEN, BLOOD 9 mg/dL (7-18)
[2023-07-23] MEDS ORDERED: PIPERACI/TAZO 3.375GM/D5W 50ML PB IV ONE (17:38)
[2023-07-23] MEDS ORDERED: hydrALAZINE HCL IV 20 MG VIAL ONE (17:38)
[2023-07-23] MEDS: hydrALAZINE HCL IV 20 MG VIAL IV ONE (17:43)
[2023-07-23 17:44] VITALS: TEMP 98.4
[2023-07-23 17:47] LABS: APPEARANCE,URINE Clear (CLEAR); BILIRUBIN,URINE Negative (NEGATIVE); BLOOD, URINE Trace-intact Ery/uL (NEGATIVE); COLOR,URINE YELLOW (YELLOW); KETONES,URINE Negative (NEGATIVE); LEUKOCYTE ESTERASE ,URINE Negative (NEGATIVE); NITRITE, URINE Negative (NEGATIVE); PH,URINE 8.5 (5.0-8.0); PROTEIN,URINE 100 mg/dl (NEGATIVE); UGLUCOSE Negative (NEGATIVE)
[2023-07-23] MEDS: PIPERACILLIN /TAZOBACTAM 3.375 G in IV D5W 50 ML IV ONE (17:50)
[2023-07-23 19:30] VITALS: BP 139/73; O2SAT 99
== END 2023-07-23 21:23 | disposition short-term general hospital (02) ==
LOC: ER 16:29
DX: J69.0 Pneumonitis due to inhalation of food and vomit (principal); I10 Essential (primary) hypertension; E11.9 Type 2 diabetes mellitus without complications; Z86.73 Personal history of transient ischemic attack (TIA), and cerebral infarction without residual deficits; Z86.79 Personal history of other diseases of the circulatory system; Z85.841 Personal history of malignant neoplasm of brain; Z86.59 Personal history of other mental and behavioral disorders; D64.89 Other specified anemias
CPT/HCPCS: 99285; 96365; 71045; 96361 ×2; 96375; 93005; 84145; 85025; 80048; 87040 ×2; 87086; 83605; 80076; 81003; 36415; 84484; 85730; J0360; J2543 ×2; J7060; J7030